=== PATIENT | male | born 1950 | race Caucasian/White ===

== ENCOUNTER 2016-06-14 07:31 | Day surgery (SDC) | payer MEDICARE, BC ==
[~2016-06-14 07:31] MED LIST: ASPIRIN 325MG325 MG PO; CLOPIDOGREL75 MG PO; KEFLEX 500MG.500 MG PO; LEVOTHYROXINE0.05 MG NG; LIPITOR80 MG PO; LISINOPRIL 20MG20 MG PO; METOPROLOL 25 M25 MG PO; NITROGLYCERIN0.4 MG SL; NORCO 325 MG-51 TAB PO; VICODIN 5/500 T1 TAB PO
[2016-06-14 11:06] VITALS: BP 128/83
--- NOTE | 2016-06-14 14:09 | RADIOLOGY REPORT PS360 ---
CARDIAC CATHETERIZATION DATE OF CATHETERIZATION: PROCEDURES: 1. Right heart catheterization 2. Right internal jugular vein access INDICATION FOR TEST: 1. Systolic congestive heart failure 2. [place] [employer] congestive heart failure class III Informed consent was obtained prior to the procedure. COMPLICATIONS: None ESTIMATED BLOOD LOSS: Less than 10 ml. TECHNIQUE: One percent lidocaine was used to anesthetize the right anterior aspect of the neck. A cruise coordinator needle was used to identify the right internal jugular vein. Following this a larger cannulation needle was used to cannulate the right internal jugular vein and a wire was passed into the vein. Prior to the 7 [place] sheath being inserted the wire was confirmed under fluoroscopic guidance to be in the inferior vena cava. A 7 [place] sheath was introduced and a Heath-Shawanda catheter was floated using hemodynamic waveforms in the pulmonary artery, right ventricle , and right atrium. Saturations were obtained in the pulmonary artery and the right atrium. At the end of the procedure the patient was transferred to the postop holding area in stable condition for sheath removal. HEMODYNAMICS: Right atrial pressure is 3 mm Hg. Right ventricular pressure is 12/3 mm Hg. Pulmonary arterial pressure is 12/5 mm Hg. Pulmonary artery occlusion pressure is 3 mm Hg. SATURATIONS: RA is not obtained %. PA is 74% %. IMPRESSION: 1. Normal intracardial pulmonary filling pressures PLAN: 1. Consideration should be given to repeat left heart catheterization left ventriculogram given patient's ongoing symptoms 2. At this point he is a little on the dehydrated side therefore we will discontinue diuretics.
--- NOTE | 2016-06-14 14:09 | RADIOLOGY REPORT PS360 ---
CARDIAC CATHETERIZATION DATE OF CATHETERIZATION: PROCEDURES: 1. Right heart catheterization 2. Right internal jugular vein access INDICATION FOR TEST: 1. Systolic congestive heart failure 2. [place] [employer] congestive heart failure class III Informed consent was obtained prior to the procedure. COMPLICATIONS: None ESTIMATED BLOOD LOSS: Less than 10 ml. TECHNIQUE: One percent lidocaine was used to anesthetize the right anterior aspect of the neck. A computer customer support specialist needle was used to identify the right internal jugular vein. Following this a larger cannulation needle was used to cannulate the right internal jugular vein and a wire was passed into the vein. Prior to the 7 [place] sheath being inserted the wire was confirmed under fluoroscopic guidance to be in the inferior vena cava. A 7 [place] sheath was introduced and a [place]-Shawanda catheter was floated using hemodynamic waveforms in the pulmonary artery, right ventricle , and right atrium. Saturations were obtained in the pulmonary artery and the right atrium. At the end of the procedure the patient was transferred to the postop holding area in stable condition for sheath removal. HEMODYNAMICS: Right atrial pressure is 3 mm Hg. Right ventricular pressure is 12/3 mm Hg. Pulmonary arterial pressure is 12/5 mm Hg. Pulmonary artery occlusion pressure is 3 mm Hg. SATURATIONS: RA is not obtained %. PA is 74% %. IMPRESSION: 1. Normal intracardial pulmonary filling pressures PLAN: 1. Consideration should be given to repeat left heart catheterization left ventriculogram given patient's ongoing symptoms 2. At this point he is a little on the dehydrated side therefore we will discontinue diuretics.
== END 2016-06-14 10:45 | disposition home or self-care (01) ==
LOC: CATHLAB 07:31
PROVIDERS: Internal Medicine
PROC: 4A023N6 Measurement of Cardiac Sampling and Pressure, Right Heart, Percutaneous Approach (ICD-10-PCS; principal; 2016-06-14 11:00)
DX: I11.0 Hypertensive heart disease with heart failure (principal); I50.21 Acute systolic (congestive) heart failure
CPT/HCPCS: C1894; J1644

== ENCOUNTER → 2016-12-11 | Outpatient (CLI) | payer MEDICARE, BC ==
--- NOTE | 2016-12-11 17:48 | RADIOLOGY REPORT PS360 ---
CT CHEST W/O CONTRAST HISTORY: Follow-up pulmonary nodule LUNG NODULE ORDERING PHYSICIAN: GAETANO MULLEN MD PATIENT AGE: 66 years TECHNIQUE: Helical acquisition obtained without contrast. Sagittal and coronal reformatted images are also reviewed. COMPARISON: 06/05/2016 FINDINGS: Thyroid gland is somewhat enlarged with prominence of the isthmus. There are few scattered small lymph nodes in the mediastinum. There has been a prior median sternotomy with CABG. Diffuse coronary artery calcifications are present. There is gynecomastia incidentally noted and a small hiatal hernia. Is patchy infiltrate in the right upper lobe there is some mild bronchial thickening. Calcified granuloma is present in the right lower lobe. Mild atelectatic changes in the lingula. A nodular density is once again noted within the lingula which measures approximate 9 x 6 mm not significant changed and may be due to an area of parenchymal fibrosis. There is some patchy ill-defined nodularity in the right upper lobe and may be related to pneumonia. This was not present on the previous exam. Follow-up may confirm stability or resolution. There are degenerative changes in the thoracic spine. IMPRESSION: 1. No change 9 mm nodule within the lingula. 2. Faint opacification in the right upper lobe suggesting underlying pneumonitis. 3. Small hiatal hernia, gynecomastia. Prior CABG.
== END ==
LOC: RAD 12:39
DX: R91.1 Solitary pulmonary nodule (principal)